=== PATIENT | male | born 1995 | race Caucasian/White ===

== ENCOUNTER 2018-11-14 14:07 | Emergency (ER) | payer BC ==
[~2018-11-14] VITALS: Ht 185.4 cm; Wt 106.6 kg
[2018-11-14] MEDS ORDERED: IV NORMAL SALINE 1000ML BAG 1,000 ML IV ONE (15:15)
--- NOTE | 2018-11-14 15:15 | PHYS DOC ---
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 1 1/2 mo. He reports dizziness occurs with position changes. He denies any chest pain or palpitations. Patient states over the past couple months he has decreased water intake. Patient denies any recent illness or travel. Patient denies fever, N/V/D , urinary sxs, or swelling. Reports he did take Tylenol yesterday for mild headache. Patient denies any sinus congestion, earache, or sore throat. 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 Orthostatic BP/HR obtained during initial exam by this provider: Supine BP 143/83 HR 96 Sitting BP 146/81 HR 111 Standing BP 145/82 HR 88 Denied dizziness with position changes Review of Systems Review of Systems Constitutional: Denies fever or chills [] Eyes: Denies change in visual acuity, redness, or eye pain [] HENT: Denies nasal congestion or sore throat [] Respiratory: Denies cough or shortness of breath [] Cardiovascular: No additional information not addressed in HPI [] GI: Denies abdominal pain, nausea, vomiting, bloody stools or diarrhea [] : Denies dysuria or hematuria [] Musculoskeletal: Denies back pain or joint pain [] Integument: Denies rash or skin lesions [] Neurologic: Denies headache, focal weakness or sensory changes [] Endocrine: Denies polyuria or polydipsia [] All other systems were reviewed and found to be within normal limits, except as documented in this note. Current Medications Current Medications Current Medications Medications (Trade) Dose Ordered Sig/Danilo Start Time Stop Time Status Last Admin Dose Admin Sodium Chloride 1,000 ml @ 1,000 mls/hr 1X ONCE 11/14/18 15:15 11/14/18 16:14 DC 11/14/18 15:11 1,000 MLS/HR Allergies Allergies Allergies Coded Allergies Type Severity Reaction Last Updated Verified No Known Drug Allergies 03/13/16 No Physical Exam Physical Exam Constitutional: Well developed, well nourished, no acute distress, non-toxic appearance.Clear speech. Steady gait HENT: Normocephalic, atraumatic, bilateral ears normal, mucous membranes pink/ dry, no oral exudates, nose normal. [] Eyes: 3mm PERRLA, EOMI- no pain with eye movements, no nystagmus, conjunctiva normal, no discharge. [] Neck: Normal range of motion, no tenderness, supple, no stridor. [] Cardiovascular: Heart rate regular rhythm, no murmur [] Lungs & Thorax: Bilateral breath sounds clear to auscultation. Resp. equal/ nonlabored Abdomen: Bowel sounds normal, soft, no tenderness Skin: Warm, dry, no erythema, no rash. [] Back: No tenderness, no CVA tenderness. [] Extremities: No tenderness, no cyanosis, no clubbing, ROM intact, no edema. [] Neurologic: Alert and oriented X 3, normal motor function, normal sensory function, no focal deficits noted. [] Psychologic: Affect normal, judgement normal, mood normal. [] Current Patient Data Vital Signs Vital Signs Date Time Temp Pulse Resp B/P (MAP) Pulse Ox O2 Delivery O2 Flow Rate FiO2 11/14/18 15:30 85 20 98 11/14/18 14:30 98.0 175/77 (109) Room Air 98.0 Lab Values Laboratory Tests Test 11/14/18 14:13 11/14/18 14:50 Urine Collection Type Unknown Urine Color Yellow Urine Clarity Clear Urine pH 5.5 Urine Specific [place] 1.020 Urine Protein Negative mg/dL (NEG-TRACE) Urine Glucose (UA) Negative mg/dL (NEG) Urine Ketones (Stick) Negative mg/dL (NEG) Urine Blood Negative (NEG) Urine Nitrite Negative (NEG) Urine Bilirubin Negative (NEG) Urine Urobilinogen Dipstick 1.0 mg/dL (0.2 mg/dL) Urine Leukocyte Esterase Negative (NEG) Urine RBC 0 /HPF (0-2) Urine WBC 0 /HPF (0-4) Urine Squamous Epithelial Cells Occ /LPF Urine Bacteria 0 /HPF (0-FEW) Urine Mucus Marked /LPF White Blood Count 8.4 x10^3/uL (4.0-11.0) Red Blood Count 4.90 x10^6/uL (4.30-5.70) Hemoglobin 15.4 g/dL (13.0-17.5) Hematocrit 42.3 % (39.0-53.0) Mean Corpuscular Volume 86 fL (79-100) Mean Corpuscular Hemoglobin 31 pg (25-35) Mean Corpuscular Hemoglobin Concent 36 g/dL (31-37) Red Cell Distribution Width 12.9 % (11.5-14.5) Platelet Count 271 x10^3/uL (140-400) Neutrophils (%) (Auto) 42 % (31-73) Lymphocytes (%) (Auto) 45 % (24-48) Monocytes (%) (Auto) 8 % (0-9) Eosinophils (%) (Auto) 4 % (0-3) H Basophils (%) (Auto) 1 % (0-3) Neutrophils # (Auto) 3.5 x10^3uL (1.8-7.7) Lymphocytes # (Auto) 3.7 x10^3/uL (1.0-4.8) Monocytes # (Auto) 0.7 x10^3/uL (0.0-1.1) Eosinophils # (Auto) 0.4 x10^3/uL (0.0-0.7) Basophils # (Auto) 0.1 x10^3/uL (0.0-0.2) Sodium Level 142 mmol/L (136-145) Potassium Level 3.8 mmol/L (3.5-5.1) Chloride Level 103 mmol/L (98-107) Carbon Dioxide Level 27 mmol/L (21-32) Anion Gap 12 (6-14) Blood Urea Nitrogen 10 mg/dL (8-26) Creatinine 1.0 mg/dL (0.7-1.3) Estimated GFR (Cockcroft-Gault) 93.4 Glucose Level 110 mg/dL (70-99) H Calcium Level 9.4 mg/dL (8.5-10.1) Magnesium Level 2.0 mg/dL (1.8-2.4) Laboratory Tests 11/14/18 14:50 Laboratory Tests 11/14/18 14:50 EKG EKG [] Radiology/Procedures Radiology/Procedures [] Course & Med Decision Making Course & Med Decision Making Pertinent Labs reviewed. (See chart for details) 1600: Discussed test results with patient and his significant other. Labs were unremarkable and UA negative for ketones/protein/blood. Patient received IV fluids and denies any symptoms at this time- stating fluids did make him feel better. He remains alert and oriented 3 with no neuro focal deficits. Discussed dehydration/orthostatic VS as pt's HR had went from 96 to 111 then to 88 with position changes. Discussed probable dehydration for cause of symptoms/ dizziness. Encourage patient to increase fluid intake as well as eat well- balanced meals throughout the day. Patient has follow-up in one month with primary care physician-discussed if symptoms change or with concerns he should call and schedule appointment for sooner for reevaluation. Patient is in no visible distress and nontoxic at this time. Education provided on signs and symptoms to return to ER for an discharge instructions were discussed. Patient comfortable with home discharge plan. Staff Physician Addendum: I was working in the ER during the course of this patient's visit. I was available for consultation as needed, but I was not directly involved in the care of this patient. Dragon Disclaimer Dragon Disclaimer This electronic medical record was generated, in whole or in part, using a voice recognition dictation system. Departure Departure Impression: Primary Impression: Dehydration Additional Impression: Dizziness Disposition: 01 HOME, SELF-CARE Referrals: NO PCP (PCP) Patient Instructions: Dehydration, Adult, Dizziness Additional Instructions: Drink plenty of fluids. Eat well-balanced meals. If symptoms worsen follow up sooner with your primary care physician. Slow position changes to prevent falls if having dizziness. Problem Qualifiers OUSMANE MCGREGOR APRN Nov 14, 2018 15:15 DIAZ MANRIQUEZ MD Nov 16, 2018 23:51
[2018-11-14 15:20] LABS: CALCIUM 9.4 mg/dL (8.5-10.1); GFR 93.4; POTASSIUM 3.8 mmol/L (3.5-5.1)
[2018-11-14 15:28] LABS: BASO # 0.1 x10^3/uL (0.0-0.2); BASO % 1 % (0-3); EOS # 0.4 x10^3/uL (0.0-0.7); EOS % 4 % (0-3); HEMATOCRIT 42.3 % (39.0-53.0); HEMOGLOBIN 15.4 g/dL (13.0-17.5); LYMPH # 3.7 x10^3/uL (1.0-4.8); LYMPH % 45 % (24-48); MEAN CORPUSCULAR HEMOGLOBIN 31 pg (25-35); MEAN CORPUSCULAR HGB CONC 36 g/dL (31-37); MEAN CORPUSCULAR VOLUME 86 fL (79-100); MONO # 0.7 x10^3/uL (0.0-1.1); MONO % 8 % (0-9); NEUT # 3.5 x10^3uL (1.8-7.7); NEUT % 42 % (31-73); PLATELET COUNT 271 x10^3/uL (140-400); RED CELL DISTRIBUTION WIDTH 12.9 % (11.5-14.5); WHITE BLOOD COUNT 8.4 x10^3/uL (4.0-11.0)
[2018-11-14 15:30] VITALS: BP 134/67
[2018-11-14 15:33] LABS: BILIRUBIN,URINE NEGATIVE (NEG); CLARITY,URINE CLEAR; COLOR,URINE YELLOW; NITRITE,URINE NEGATIVE (NEG); PH,URINE 5.5; PROTEIN,URINE NEGATIVE (NEG-TRACE)
[2018-11-14 15:59] LABS: BACTERIA,URINE 0 /HPF (0-FEW); RBC,URINE 0 /HPF (0-2); SQUAMOUS EPITHELIAL CELL,UR OCC /LPF; WBC,URINE 0 /HPF (0-4)
== END 2018-11-14 16:40 | disposition home or self-care (01) ==
LOC: ER 14:07
DX: E86.0 Dehydration (principal); R42 Dizziness and giddiness
CPT/HCPCS: 36415; 80048; 81001; 83735; 85025; 96360; 99283; J7030